=== PATIENT | female | born 1990 | race Caucasian/White ===

== ENCOUNTER 2020-02-21 03:47 | Inpatient (IN) | payer OTHER ==
[~2020-02-21] VITALS: Ht 157.5 cm; Wt 78.0 kg
[2020-02-21] MEDS ORDERED: PRENATAL TABLE1 EACH PO (05:48)
[2020-02-21] MEDS ORDERED: IRON325 MG PO (05:49)
[2020-02-21] MEDS ORDERED: FOLIC ACID20 MG PO (05:49)
== END 2020-02-24 13:18 | disposition home or self-care (01) | DRG 786 ==
LOC: MEDJ 03:47 → LDR 03:47 → MEDJ 08:33
PROVIDERS: Obstetrics & Gynecology; ADMIT Obstetrics & Gynecology; ATTEND Obstetrics & Gynecology
PROC: 3E033VJ Introduction of Other Hormone into Peripheral Vein, Percutaneous Approach (ICD-10-PCS; 2020-02-21)
PROC: 4A1HXFZ Monitoring of Products of Conception, Cardiac Rhythm, External Approach (ICD-10-PCS; 2020-02-21)
PROC: 8E0ZXY6 Isolation (ICD-10-PCS; 2020-02-21)
PROC: 10D00Z1 Extraction of Products of Conception, Low, Open Approach (ICD-10-PCS; principal; 2020-02-21 07:00)
DX: O36.4XX0 Maternal care for intrauterine death, not applicable or unspecified (principal); U07.1 COVID-19; O98.52 Other viral diseases complicating childbirth; Z3A.20 20 weeks gestation of pregnancy; Z37.1 Single stillbirth

== ENCOUNTER 2020-06-15 12:56 | Emergency (ER) | payer OTHER ==
[~2020-06-15] VITALS: Ht 157.5 cm; Wt 69.4 kg
[~2020-06-15 12:56] MED LIST: FOLIC ACID20 MG PO; IRON325 MG PO; PRENATAL TABLE1 EACH PO
== END 2020-06-15 20:50 | disposition home or self-care (01) ==
LOC: ER 12:56
DX: R10.2 Pelvic and perineal pain (principal); Z03.818 Encounter for observation for suspected exposure to other biological agents ruled out